=== PATIENT | male | born 1950 | race Caucasian/White ===

== ENCOUNTER 2024-02-07 06:39 | Emergency (ER) | payer MEDICARE, SELFPAY ==
[2024-02-07 06:41] VITALS: BP 164/103; PULSE 65; RESP 16; TEMP 37.3; O2SAT 96
--- NOTE | 2024-02-07 07:03 | ED.GENADUL_ITS ---
Discharge Plan Disposition Patient Disposition: Home Condition: Stable Discharge Details Clinical Impression: Hip pain, left Primary Care Provider: Dean Ha ED Provider: Kehinde Arreguin Home Meds and New Rx's Prescriptions: New cyclobenzaprine 10 mg tablet 10 mg PO TID PRNQty: 20 0RF Continued triamcinolone acetonide [Nasacort] 10.8 ML aerosol,spray 1 spray NS DAILY PRN PRN multivitamin 1 EACH capsule 1 ea PO DAILY Clear Eyes Complete 15 ML drops 2 drp OU PRN PRN ibuprofen 600 MG tablet 600 mg PO Q6H PRN PRNQty: 30 0RF Discharge Instructions Additional Instructions: Your x-ray did not show any concerning findings. This could be a muscle spasm or inflammation of the joint You can take 600 mg of ibuprofen every 6 hours as needed and also 1000 mg of acetaminophen every 6 hours as needed Follow-up with your primary care provider if you are still having symptoms in a week If you feel more ill or have new symptoms such as high fevers return to the emergency department for reevaluation The cyclobenzaprine can make you drowsy so if you take this during the day do not operate heavy machinery or drink alcohol with it. HPI General Mode of arrival: EMS . Date/Time Provider Initiated Documentation: 02/07/24 06:54 . Limitations to Documentation: no limitations . Information obtained by: patient . History of Present Illness 74 year old M presents to the emergency department with the chief complaint of left hip pain, described as moderate, Quality is described as aching, Patient started experiencing this month(s) (3) and it has been intermittent. No relieving factors improve symptom(s), No exacerbating factors reported . Patient notes no other symptoms.; denies fever/chills, nausea/vomiting and shortness of breath. Related Data Home Medications Medication Instructions Recorded Confirmed multivitamin 1 ea PO DAILY 02/03/16 02/07/24 naphazo HCl 0.025 %-hyprome 0.2 2 drp OU PRN PRN 02/03/16 02/07/24 %-ps 80 0.5 %-Zn sulf 0.25 % eye drops (Clear Eyes Complete) triamcinolone acetonide 55 mcg 1 spray NS DAILY PRN PRN 02/03/16 02/07/24 nasal spray aerosol (Nasacort) ibuprofen 600 mg tablet 600 mg PO Q6H PRN PRN ##30 02/07/16 02/07/24 cyclobenzaprine 10 mg tablet 10 mg PO TID PRN #20 tabs 02/07/24 Previous Rx's Medication Instructions Recorded ibuprofen 600 mg tablet 600 mg PO Q6H PRN PRN ##30 02/07/16 cyclobenzaprine 10 mg tablet 10 mg PO TID PRN #20 tabs 02/07/24 Allergies Allergy/AdvReac Type Severity Reaction Status Date / Time No Known Allergies Allergy Unverified 02/07/24 06:45 General Stated Complaint: Orthopedic ESTRELLA: 3 Review of Systems All systems reviewed & are unremarkable except as noted in HPI and below Constitutional Constitutional: Denies chills, Denies fever(s) and Denies weakness Eyes Eyes: Denies loss of vision Cardiovascular Cardiovascular: Denies chest pain and Denies dyspnea Respiratory Respiratory: Denies cough and Denies dyspnea Gastrointestinal Gastrointestinal: Denies abdominal pain, Denies nausea and Denies vomiting Musculoskeletal Musculoskeletal: Denies joint swelling Neurologic Neurologic: Denies loss of vision and Denies weakness Exam Const General: no acute distress Orientation: alert [facility] Head: normal to inspection Ears: external ears normal General nose exam: external nose normal Mouth: moist mucous membranes Eyes General: appearance normal, both eyes and all related structures Neck Neck: normal visual inspection Resp Effort & Inspection: normal respiratory effort and able to speak in complete sentences Cardio Rate: regular rate Skin General skin exam: no rashes or lesions noted Neuro General: patient alert and patient oriented x3 Extrem General: normal to inspection, full ROM, capillary refill normal and no calf tenderness Psych Mental Status: mental status grossly normal Course Vital Signs Vital signs: Vital Signs Temperature 37.3 C 02/07/24 06:41 Pulse 65 02/07/24 06:41 Respiratory Rate 16 02/07/24 06:41 Blood Pressure 164/103 H 02/07/24 06:41 Pulse Oximetry 96 02/07/24 06:41 Temperature 37.3 C 02/07/24 06:41 Temperature Source Temporal Artery Scan 02/07/24 06:41 Pulse 65 02/07/24 06:41 Respiratory Rate 16 02/07/24 06:41 Respiratory Effort Normal, Non-Labored 02/07/24 06:46 Blood Pressure 164/103 H 02/07/24 06:41 Blood Pressure Position Supine 02/07/24 06:41 Pulse Oximetry 96 02/07/24 06:41 Pain Level 0 02/07/24 06:41 Comment pain 0/10 when not moving, 10/10 when moving 02/07/24 06:41 Medical Decision Making 74-year-old male comes in with intermittent left hip pain for approximately 3 months. He says that in October he fell from standing and ever since has had a few episodes where he has spasm, and aching in his left hip. He denies any recent falls, no fevers, no chills. He localizes the pain to the left lateral hip. He has no visible or palpable deformities, he is tender over the left lateral hip. Has normal sensation and pulses in the leg, full range of motion of the hip, knee, ankle and foot. There is no swelling of the leg, calf tenderness. Suspect musculoskeletal pain versus muscle spasm, will obtain x- rays to exclude pathological fracture. There is no findings on history or exam to suggest entity such as septic joint. X-ray read as no acute findings on my read and also the radiologist, patient is stable and feels significant better after Toradol, is ambulating without assistance with a normal gait. Suspect either muscle spasm or possibly bursitis, will have him take as needed ibuprofen and Tylenol and advised to follow-up with his PCP return precautions given Differential Diagnosis Differential Diagnosis: Bursitis, muscle spasm, strain Imaging Data Radiologic Study: Attestation: I personally reviewed and interpreted this imaging study as follows: Imaging: X-Ray Radiologist's impression: X-ray shows no acute findings Quality:SDOH Health Related Social Needs: No Data to Display PFS All Active Problems (Updated 02/07/24 @ 09:26 by Kehinde Arreguin MD) Hip pain, left (Acute) Medical History (Updated 02/07/24 @ 09:26 by Kehinde Arreguin MD) Left inguinal hernia Surgical History (Updated 06/04/18 @ 14:36 by [facility]) Tonsillectomy 1953 Colonoscopy - IV Sedation 2007 Social History Smoking/Tobacco Use Status: Never Smoking risk assessment performed?: Yes Alcohol Intake: current Alcohol Intake frequency: a few times a week Alcohol type: beer Drug use: Never Substance use type: does not use Housing: house Do you feel safe at home: Yes Do you feel safe in your relationship?: Yes
--- NOTE | 2024-02-07 07:43 | DI.RAD_ITS ---
Exam(s) XR HIP LT COMPLETE AP PELVIS EXAM: XR HIP LT COMPLETE AP PELVIS CLINICAL HISTORY: left hip pain. TECHNIQUE: 2D digital imaging was performed. Three views. COMPARISON: No exams were available for comparison FINDINGS: BONES: No acute fracture is present. No bony destructive lesion is seen. JOINTS: No dislocation present. Mild bilateral hip joint space narrowing and periarticular spurring . Degenerative changes of the SI joints. SOFT TISSUE: Normal. It lies in the low pelvis which may represent bladder calculi. IMPRESSION: No acute abnormality. Probable bladder calculi. DATA REPOSITORY: RADIATION DOSE DELIVERED:
[2024-02-07] MEDS: Ketorolac 15 MG/ML VIAL IM (08:12)
[2024-02-07 09:33] VITALS: BP 153/71; PULSE 53; RESP 16; TEMP 36.6; O2SAT 97
--- NOTE | 2024-02-07 09:55 | DI.VRAD_ITS ---
PROCEDURE INFORMATION: Exam: XR Left Hip Exam date and time: 02/07/2024 7:33 AM Age: 74 years old Clinical indication: Hip pain and pelvic pain; Left hip TECHNIQUE: Imaging protocol: Radiologic exam of the left hip. Views: 2 or 3 views hip with pelvis when performed. COMPARISON: No relevant prior studies available. FINDINGS: Bones/joints: Diffuse degenerative change of the visualized osseous structures. Soft tissues: Unremarkable. Intraperitoneal space: There is a large calcified entity with radiating spiculation left of midline projecting within the pelvis measuring 2.8 x 3.0 cm. IMPRESSION: Stellate calcified body left of midline within the pelvis, nonspecific may represent bladder calculus (jackstone), alternatively may represent ossifying sacral mass or pelvic mass. Recommend CT of the pelvis with contrast for further evaluation. Dictated and Authenticated by: Edilson Min MD. Ordering:VINCENT Busby MD
== END 2024-02-07 10:20 | disposition home or self-care (01) ==
PROVIDERS: Emergency Provider Emergency Medicine; PCP Family Medicine
DX: M25.552 Pain in left hip (principal)
CPT/HCPCS: 96372; 99284; 73502; 99283; J1885

== ENCOUNTER 2024-04-18 11:14 | Emergency (ER) | payer MEDICARE, SELFPAY ==
--- NOTE | 2024-04-18 11:15 | W.ED.GENAD ---
Discharge Plan Disposition Patient Disposition: Home Discharge Details Clinical Impression: Left sided sciatica Primary Care Provider: Dean Ha ED Provider: Ariel Mcgraw Home Meds and New Rx's Prescriptions: New lidocaine [Lidoderm] 5 % adhesive patch,medicated 1 patch topical DAILY Qty: 15 0RF Rx Instructions: leave on most painful area for up to 12 hrs Continued triamcinolone acetonide [Nasacort] 10.8 ML aerosol,spray 1 spray NS DAILY PRN PRN multivitamin 1 EACH capsule 1 ea PO DAILY Clear Eyes Complete 15 ML drops 2 drp OU PRN PRN ibuprofen 600 MG tablet 600 mg PO Q6H PRN PRNQty: 30 0RF Discharge Instructions Instructions: Sciatica Exercises Additional Instructions: You are seen in the emergency department for your leg pain. You are receiving a prescription for a numbing patch. If this medication works please fill this at your pharmacy. If this does not work please disregard. As we discussed, please return to the emergency department if you develop fevers worsening leg pain any color changes in your foot or if you fall. Discharge Data Discharge Date/Time-TO BE ENTERED AT DEPARTURE: 04/18/24 12:30 HPI General Date/Time Provider Initiated Documentation: 04/18/24 11:15. HPI Narrative: MDM This is an overall very well-appearing normothermic and not tachycardic 74-year-old male with recurrent left-sided sciatica for which he will receive IM ketorolac and Lidoderm patch. No pain out of proportion to suggest necrotizing soft tissue infection. No rash to suggest zoster. Good range of motion in left hip and no fevers so doubt septic joint. No history of trauma to suggest hip fracture so we will defer repeat plain films at this point in time as patient has had plain films performed earlier this summer which were negative for any pathological fractures. No calf tenderness or palpable cords to suggest DVT. No erythema to suggest cellulitis. No fluctuance to suggest abscess. No left lower quadrant tenderness to suggest diverticulitis. Not hypotensive nor does have a history of AAA so doubt ruptured AAA. No history of ureterolithiasis and no flank pain so my suspicion for ureterolithiasis is low. No back pain to suggest cauda equina syndrome. No recent spinal procedures to suggest increased risk for spinal epidural hematoma. No fever to suggest increased risk for spinal epidural abscess. No dysuria or frequency to suggest UTI. No testicular pain to suggest torsion. Patient had had good response to IM ketorolac earlier this year. Will repeat this and discharged with an empiric trial of expectant outpatient management. Patient and I discussed his return indications including any worsening pain any rash or fevers or any color changes in his foot. HPI This is a 74-year-old male with a history of left-sided sciatica arriving to the emergency department via private vehicle in the setting of left-sided upper leg pain which he reports feels similar to a prior episode of sciatica. Patient notes that his symptoms initially began approximately 9 months ago. He was seen in the emergency department in January of this year diagnosis sciatica and received PCP referral. Subsequently he had a course of steroids from his primary care provider which helped tremendously. He felt the sciatica coming on again last week and was given another course of steroids which did not improve his symptoms. He endorses a left upper thigh pain. He says that it does travel up to his left flank but he tells me that he is not having back pain at the moment. He did have 1 episode of diarrhea this morning but denies abdominal pain nausea vomiting and chest pain shortness of breath. No history of nephrolithiasis. No black nor bloody stools. No recent falls. No history of recent dysuria frequency fevers nor chills. He has been ambulating with a cane recently. Exam General: Well-appearing in no acute distress speaking in complete sentences. Head: Normocephalic, atraumatic. Eye: Extraocular eye movements intact. No conjunctival injection. No scleral icterus. Ear, nose, mouth, throat: Grossly normal inspection. Normal voice, handling secretions normally. Neck: Trachea midline. Cardiovascular: Well-perfused distal extremities. Respiratory: Nonlabored respiration. Gastrointestinal: Nondistended abdomen. Musculoskeletal: Left lower extremity no obvious signs of trauma. No erythema. No fluctuance. No rash. Patient does have some posterior proximal femur tenderness. He has full range of motion in his left lower extremity. His pelvis is stable. He has a warm well-perfused left foot with 2+ PT and DP pulses. No calf tenderness. No palpable cords. 5 out of 5 bilateral lower extremity strength dorsi and plantarflexion. Nontender calf. Knee with full range of motion no knee effusions. No knee tenderness. No medial thigh tenderness. Patient does have sciatica symptoms on straight leg raise which causes pain to radiate down the posterior aspect of his left leg into the back of his knee. Skin: Normal for age and race, grossly normal temperature and turgor. No acute rash. Neurologic: Alert and appropriate, no apparent acute deficits. GCS 15 Psychiatric: Mood and manner are appropriate. Grooming and personal hygiene are appropriate. Related Data Home Medications ?Medication ?Instructions ?Recorded ?Confirmed multivitamin 1 ea PO DAILY 02/03/16 04/18/24 naphazo HCl 0.025 %-hyprome 0.2 2 drp OU PRN PRN 02/03/16 04/18/24 %-ps 80 0.5 %-Zn sulf 0.25 % eye drops (Clear Eyes Complete) triamcinolone acetonide 55 mcg 1 spray NS DAILY PRN PRN 02/03/16 04/18/24 nasal spray aerosol (Nasacort) ibuprofen 600 mg tablet 600 mg PO Q6H PRN PRN ##30 02/07/16 04/18/24 lidocaine 5 % topical patch 1 patch topical DAILY #15 ea 04/18/24 (Lidoderm) Previous Rx's ?Medication ?Instructions ?Recorded ibuprofen 600 mg tablet 600 mg PO Q6H PRN PRN ##30 02/07/16 lidocaine 5 % topical patch 1 patch topical DAILY #15 ea 04/18/24 (Lidoderm) Allergies Allergy/AdvReac Type Severity Reaction Status Date / Time No Known Allergies Allergy Unverified 04/18/24 11:21 General ESTRELLA: 3 Medical Decision Making Quality:SDOH Health Related Social Needs: No Data to Display PFSH All Active Problems (Updated 04/18/24 @ 11:40 by Ariel Mcgraw MD) Left sided sciatica (Acute) Medical History (Updated 04/18/24 @ 11:40 by Ariel Mcgraw MD) Left inguinal hernia Surgical History (Updated 06/04/18 @ 14:36 by [facility] [place]) Tonsillectomy 1953 Colonoscopy - IV Sedation 2007 Social History Smoking/Tobacco Use Status: Never Smoking risk assessment performed?: Yes Alcohol Intake: current Alcohol Intake frequency: a few times a week Alcohol type: beer Drug use: Never Substance use type: does not use Housing: house Do you feel safe at home: Yes Do you feel safe in your relationship?: Yes
[2024-04-18 11:18] VITALS: BP 131/87; PULSE 84; RESP 12; TEMP 36.8; O2SAT 98
[2024-04-18] MEDS: Ketorolac 15 MG/ML VIAL IM (11:52)
[2024-04-18] MEDS: Lidocaine 5% Patch 1 PATCH TP (11:53)
== END 2024-04-18 12:30 | disposition home or self-care (01) ==
LOC: ER 11:48
PROVIDERS: Emergency Provider Emergency Medicine; PCP Family Medicine
DX: M54.32 Sciatica, left side
CPT/HCPCS: 96372; 99284; 99283; J1885